=== PATIENT | female | born 1965 | race Caucasian/White ===

== ENCOUNTER 2022-02-22 18:15 | Emergency (ER) | payer BC ==
[2022-02-22 19:32] LABS: #Eosinphils 0.1 10x3/uL (0.0-0.5); #Monocytes 0.7 10x3/uL (0.0-1.1); #Neutrophils 5.5 10x3/uL (1.5-8.4); %Basophils 0.3 % (0.0-2.0); %Eosinophils 1.1 % (0.0-6.0); %Lymphocytes 30.1 % (18.0-47.0); %Monocytes 7.3 % (0.0-10.0); %Neutrophils 60.9 % (40.0-75.0); Hemoglobin 11.9 g/dL (12.0-15.5); Mean Corpuscular HGB CONC 32.6 g/dL (32.0-36.0); Mean Corpuscular Hemoglobin 26.8 pg (27.0-33.0); Mean Corpuscular Volume 82.2 fl (81.6-98.3); Mean Platelet Volume 9.3 fl (7.4-10.4); Platelet Count 286 10x3/uL (150-450); RBC Distribution Width 17.2 % (11.5-14.5); Red Blood Cell (RBC) Count 4.44 10x6/uL (3.90-5.03)
[2022-02-22 19:40] LABS: ALT (SGPT) 19 U/L (8-55); AST (SGOT) 23 U/L (5-34); Albumin 4.5 g/dL (3.5-5.0); Alkaline Phosphatase 95 U/L (40-110); Anion Gap 16 mmol/L (10-20); BUN (Urea Nitrogen) 18 mg/dL (9.8-20.1); Bilirubin Neg (Negative); Bilirubin, Total 0.3 mg/dL (0.2-1.2); Blood, Urine 25 (Negative); CK (CPK) 113 U/L (29-168); Calc. Creatinine Clearance 0 mL/min (70-130); Calcium 9.3 mg/dL (7.8-10.44); Carbon Dioxide 26 mmol/L (22-29); Chloride 102 mmol/L (98-107); Clarity Slightly Cloudy (Clear); Estimated GFR 85; Globulin 2.6 g/dL (2.4-3.5); Glucose 98 mg/dL (70-105); Glucose, Urine (Dipstick) Normal (Negative); Ketone, Urine Negative (Negative); Leukocyte 100 (Negative); Nitrite Negative (Negative); Potassium 3.6 mmol/L (3.5-5.1); Protein, Total 7.1 g/dL (6.0-8.3); Protein, Urine (Dipstick) 15 mg/dl (Neg-Trace); Sodium 140 mmol/L (136-145); Urobilinogen Normal mg/dL (Less than 2)
[2022-02-22 20:21] LABS: Bacteria/HPF Rare-Few HPF (None Seen); Squamous Epithelial 0-3 HPF (0-3)
[2022-02-22 20:22] LABS: Mucous/LPF 1+ LPF (<2+)
== END 2022-02-22 20:30 | disposition home or self-care (01) ==
LOC: CSHERS 18:15
DX: R55 Syncope and collapse (principal)
CPT/HCPCS: 71045; 80053; 81003; 81015; 82550; 84484; 85025; 85379; 93005

== ENCOUNTER 2024-02-23 08:40 | Outpatient (CLI) | payer BC | END 2024-02-23 08:41 | disposition home or self-care (01) | LOC: CSHCT 08:40 | PROVIDERS: ATTEND Internal Medicine Hematology & Oncology | DX: R04.2 Hemoptysis (principal); C50.919 Malignant neoplasm of unspecified site of unspecified female breast; R91.8 Other nonspecific abnormal finding of lung field | CPT/HCPCS: 70491; 71260 ==